=== PATIENT | male | born 1960 | race Caucasian/White ===

== ENCOUNTER → 2016-05-23 | Outpatient (CLI) | payer OTHER | LOC: BHFA 13:45 | PROVIDERS: ATTEND Internal Medicine Cardiovascular Disease | DX: I25.10 Atherosclerotic heart disease of native coronary artery without angina pectoris (principal); I73.9 Peripheral vascular disease, unspecified; I10 Essential (primary) hypertension; E11.9 Type 2 diabetes mellitus without complications; E78.5 Hyperlipidemia, unspecified ==

== ENCOUNTER → 2016-06-06 | Outpatient (CLI) | payer OTHER | LOC: BHFA 14:00 | PROVIDERS: ATTEND Internal Medicine Cardiovascular Disease | DX: R94.31 Abnormal electrocardiogram [ECG] [EKG] (principal); I73.9 Peripheral vascular disease, unspecified | CPT/HCPCS: 78452; 93017; A9500 ==

== ENCOUNTER 2016-10-21 01:37 | Emergency (ER) | payer OTHER ==
[2016-10-21 01:47] VITALS: BP 165/101; PULSE 86; RESP 16; TEMP 97.9; O2SAT 91
--- NOTE | 2016-10-21 01:48 | EDPHY ---
H & P Stated Complaint: R leg poss infection HPI/ROS: HPI CHIEF COMPLAINT: Possible right leg infection HISTORY OF PRESENT ILLNESS: This patient very pleasant 56-year-old male significant past medical history for diabetes, gangrene of the right leg requiring lkjhs-buk-rnmz amputation and now walks with a prostatic, hypertension , he presents emergency room as he thinks he may have an area of small amount of cellulitis to the right medial thigh/knee region. States this is where his prostatic goes on his leg. He noticed some irritation yesterday and redness. Today got slightly worse and he had some mild pain there. No fever. He now presents to the emergency room at 2 o'clock in the morning for a small circumferential area of redness and warmth with a central head 5 cm x 5 cm. Denies any other areas of inflammation. He does tell me he is diabetic. Has had infection cellulitis and abscess before. He is not allergic to any medications. Past Medical History: Diabetes, gangrene of the right leg requiring amputation , hypertension Past Surgical History: Right llprn-uqt-wumi amputation. Social History: Daily tobacco use, denies drugs or alcohol Family History: Noncontributory ROS REVIEW OF SYSTEMS: A comprehensive 10 point review of systems is otherwise negative aside from elements mentioned in the history of present illness. Exam Constitutional triage nursing summary reviewed, vital signs reviewed, awake/ alert. Eyes normal conjunctivae and sclera, EOMI, PERRLA. HENT normal inspection, atraumatic, moist mucus membranes, no epistaxis, neck supple/ no meningismus, no raccoon eyes. Respiratory clear to auscultation bilaterally, normal breath sounds, no respiratory distress, no wheezing. Cardiovascular rate normal, regular rhythm, no murmur, no edema, distal pulses normal. Gastrointestinal soft, non-tender, no rebound, no guarding, normal bowel sounds, no distension, no pulsatile mass. Genitourinary no CVA tenderness. Musculoskeletal no midline vertebral tenderness, full range of motion, no calf swelling, no tenderness of extremities, no meningismus, good pulses, neurovascularly intact. Skin RIGHT THIGH, MEDIAL ASPECT/PROXIMAL KNEE: There is an area of 5 cm x 5 cm circumferentially with a central head very minimal fluctuance, no significant induration, not exquisitely tender, no crepitus, no streaking, no palpable lymphadenopathy, however this area appears to be cellulitic . Neurologic awake, alert and oriented x 3, AAOx3, moves all 4 extremities equally, motor intact, sensory intact, CN II-XII intact, normal cerebellar, normal vision, normal speech. Psychiatric normal mood/affect. Heme/Lymph/Immune no lymphadenopathy. Differential Diagnosis: Cellulitis of the right thigh, MRSA infection, strep infection, abscess or early Medical Decision Making: Here in the emergency room he appears well nontoxic. Will do a bedside I and D as there is a little bit of fluctuance at the central head region. Will outline this. Need to be placed on warm compresses. It is minimal area at this time does not require hospitalization. He understands given that he is diabetic and has had gangrene in the past he needs to watch his wound very closely. Needs return to the emergency room immediately if he has any worsening symptoms this includes spreading of the redness, swelling, pain, drainage, fever. He understands this. We started on Keflex and Bactrim. 1st dose given here in the emergency room. Re-eval: 0205AM: I did perform a bedside I and D. 1% lidocaine with epinephrine was used for local anesthesia 5 cc were used. An 11 blade scalpel was used for a very small incision. A very small incision was made and only 1-2 cc of pus was removed. There was no tracking. No packing placed. Minimal fluctuance no significant induration. The wound is been outline. Dressing in place. Again patient warned about strict return precautions come back if this is getting worse including fever, swelling, worsening redness, streaking or pain. Or if he has any questions or concerns. Take Keflex and Bactrim. 1st dose given in the emergency room. He understands. 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 - Social History Smoking Status: Light smoker Constitutional: Initial Vital Signs Temperature (C) 36.6 C 10/21/16 01:44 Heart Rate 86 10/21/16 01:44 Respiratory Rate 16 10/21/16 01:44 Blood Pressure 165/101 H 10/21/16 01:44 O2 Sat (%) 91 L 10/21/16 01:44 O2 Delivery Mode Room Air Allergies/Adverse Reactions: No Known Allergies Allergy (Verified 07/26/15 15:34) Home Medications: Medication Instructions Recorded Aspirin [Aspirin 325 mg (OTC)] 325 mg PO DAILY 11/24/11 Citalopram [celeXA 20 MG (RX)] 20 mg PO DAILY 11/24/11 Clopidogrel Bisulfate [Plavix (RX)] 75 mg PO DAILY 11/24/11 Simvastatin [Zocor 40 mg (RX)] 40 mg PO DAILY18 11/24/11 metFORMIN HCL [Glucophage 500 mg 500 mg PO TID 11/24/11 (RX)] Cephalexin [Keflex] 500 mg PO Q6H #28 cap 10/21/16 Diovan 10/21/16 Glipizide 10/21/16 Sulfamethox/Tmp 800/160 mg 1 tab PO BID@1000,2200 #14 tab 10/21/16 [Bactrim Ds] Departure - Departure Disposition: Home, Routine, Self-Care Clinical Impression: Cellulitis Qualifiers: Site of cellulitis: extremity Site of cellulitis of extremity: lower extremity Laterality: right Qualified Code(s): L03.115 - Cellulitis of right lower limb Condition: Good Instructions: Cellulitis (ED), Abscess (ED) Additional Instructions: 1. Please take antibiotics as prescribed. 2. Return emergency room immediately if you have worsening symptoms includes worsening redness, streaking, fever, pain, drainage or any questions or concerns about your infection. If you think it is getting worse return immediately. 3. Use warm compresses 3 to 4 times a day for 20 minutes. Referrals: Leonarda Darby PA [Primary Care Provider] - As per Instructions Prescriptions: Cephalexin [Keflex] 500 mg PO Q6H #28 cap Sulfamethox/Tmp 800/160 mg [Bactrim Ds] 1 tab PO BID@1000,2200 #14 tab
[2016-10-21] MEDS ORDERED: SULFAMETHOX/TMP 800/160 MG 1 TAB PO ONE (01:59)
[2016-10-21] MEDS ORDERED: CEPHALEXIN 500 MG CAP PO ONE (01:59)
[2016-10-21] MEDS ORDERED: CEPHALEXIN 500MG PREPACK#4 BTL TAKEHOME ONE (01:59)
== END 2016-10-21 02:24 | disposition home or self-care (01) ==
DX: L03.115 Cellulitis of right lower limb (principal); E11.9 Type 2 diabetes mellitus without complications; I10 Essential (primary) hypertension; F17.200 Nicotine dependence, unspecified, uncomplicated; Z79.82 Long term (current) use of aspirin; Z79.84 Long term (current) use of oral hypoglycemic drugs

== ENCOUNTER 2016-11-09 16:44 | Emergency (ER) | payer OTHER ==
[2016-11-09 16:51] VITALS: BP 164/99; PULSE 78; RESP 16; TEMP 97.7; O2SAT 98
--- NOTE | 2016-11-09 17:16 | EDPHY ---
H & P Stated Complaint: R knee amputee 2003, pt concerned stump infected HPI/ROS: Chief complaint: Right leg infection History of present illness: This is a 56-year-old male who presents to the Emergency department for a right leg infection. Patient has a hhsmj-wjq-qtbl amputation with a prosthetic leg in place. He has noticed the development of the redness, pain and swelling to the inner aspect of the distal right leg over the last day. He is concerned this is a developing infection. He was seen in this emergency department at the end of September and diagnosed with an infection in the same place. He was treated with Keflex and Bactrim which he took as directed and symptoms resolved. However they are again returning. He denies other signs or symptoms including no red streaking, no fevers, no other signs or symptoms. 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 - Social History Smoking Status: Light smoker - Physical Exam Exam: General: Alert, nontoxic Skin: There is not a small area of erythema to the medial aspect of the right lower leg. No induration or fluctuance on palpation. No red streaking. Musculoskeletal: There is a cqzom-woo-bcit amputation. He is moving the knee well. Vascular: Good blood flow to the right lower extremity with capillary refill Neurologic: Sensation appears intact throughout the right lower extremity Constitutional: Initial Vital Signs Temperature (C) 36.5 C 11/09/16 16:49 Heart Rate 78 11/09/16 16:49 Respiratory Rate 16 11/09/16 16:49 Blood Pressure 164/99 H 11/09/16 16:49 O2 Sat (%) 98 11/09/16 16:49 O2 Delivery Mode Room Air Allergies/Adverse Reactions: No Known Allergies Allergy (Verified 07/26/15 15:34) Home Medications: Medication Instructions Recorded Aspirin [Aspirin 325 mg (OTC)] 325 mg PO DAILY 11/24/11 Citalopram [celeXA 20 MG (RX)] 20 mg PO DAILY 11/24/11 Clopidogrel Bisulfate [Plavix (RX)] 75 mg PO DAILY 11/24/11 Simvastatin [Zocor 40 mg (RX)] 40 mg PO DAILY18 11/24/11 metFORMIN HCL [Glucophage 500 mg 500 mg PO TID 11/24/11 (RX)] Diovan 10/21/16 Glipizide 10/21/16 Cephalexin [Keflex] 500 mg PO QID 7 Days 11/09/16 Sulfamethox/Tmp 800/160 mg 1 tab PO BID 7 Days 11/09/16 [Bactrim Ds] Medical Decision Making ED Course/Re-evaluation: Patient is seen under the supervision of my secondary supervising physician Dr. Isaiah Beth. Patient presents to the emergency department concerned he is developing a skin infection. History and physical exam is consistent with mild cellulitis. No evidence of complications such as abscess, lymphangitis etc. I will restart him on Keflex and Bactrim which he took previously. I believe he is appropriate for inpatient management. He is referred to Infectious Disease given recurrent infection. Return precautions are given. Patient voiced understanding and agreement plan. Differential Diagnosis: Include but not limited to cellulitis, abscess, lymphangitis, unlikely necrotizing fasciitis Departure - Departure Disposition: Home, Routine, Self-Care Clinical Impression: Cellulitis Qualifiers: Site of cellulitis: extremity Site of cellulitis of extremity: lower extremity Laterality: right Qualified Code(s): L03.115 - Cellulitis of right lower limb Condition: Good Instructions: Cellulitis (ED) Additional Instructions: Up with infectious disease this week for continued evaluation and care Take all antibiotics as prescribed until finished even feeling better If symptoms worsen or new symptoms develop return to the emergency room for recheck Referrals: Leonarda Fuller DO [Primary Care Provider] - As per Instructions Patricia Vargas MD [Medical Doctor] - As per Instructions Prescriptions: Cephalexin [Keflex] 500 mg PO QID 7 Days Sulfamethox/Tmp 800/160 mg [Bactrim Ds] 1 tab PO BID 7 Days
== END 2016-11-09 17:31 | disposition home or self-care (01) ==
DX: L03.115 Cellulitis of right lower limb (principal); E11.9 Type 2 diabetes mellitus without complications; F17.200 Nicotine dependence, unspecified, uncomplicated; Z79.82 Long term (current) use of aspirin; Z79.84 Long term (current) use of oral hypoglycemic drugs; Y82.8 Other medical devices associated with adverse incidents

== ENCOUNTER 2018-03-26 14:20 | Emergency (ER) | payer OTHER ==
--- NOTE | 2018-03-26 14:44 | EDPHY ---
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 About 4-5 days ago his prosthesis at rubbed some red area on the distal stump but now he has 2 open wounds, 1 a single cm and 10.5 cm on the distal stump. No lymphangitis and no pus or drainage. It is not painful, the patient does have a little bit of discomfort and is concerned that it will become infected if not treated. He says it was more swollen and red yesterday and today looks a little bit better. REVIEW OF SYSTEMS: No fever or chills, no direct trauma except for rubbing from the prosthesis PAST MEDICAL HISTORY: Includes right BKA, diabetes, hypercholesterolemia, hypertension Social history: [facility] General Appearance: Alert and conversant, cooperative. Distal stump has a 5 cm area of slight erythema but it is not warm to the touch or painful to palpation. This is anterior to the stump distally. On the inferior portion of the stump there are 2 open wounds, 1 is 1 cm and 1 is 0.5 cm. There partial-thickness and do not have discharge or drainage. No visible tissue underneath, partial thickness to the skin. Normal range of motion of the knee. Emergency Department course/MDM: Patient presents with open wound and is high risk for infection given previous gangrene and history of diabetes. He has some surrounding redness but do not think he is septic or have abscess or fasciitis or require IV antibiotics. Local wound care, Augmentin, will use crutches no prosthesis until healed, primary care follow-up. This is what the patient is requesting which I think is reasonable. Smoking Status: Light smoker Constitutional: Initial Vital Signs Temperature (C) 36.3 C 03/26/18 14:24 Heart Rate 82 03/26/18 14:24 Respiratory Rate 18 03/26/18 14:24 Blood Pressure 189/105 H 03/26/18 14:24 O2 Sat (%) 95 03/26/18 14:24 O2 Delivery Mode Room Air Allergies/Adverse Reactions: No Known Allergies Allergy (Verified 03/26/18 14:28) Home Medications: Medication Instructions Recorded Aspirin [Aspirin 325 mg (OTC)] 325 mg PO DAILY 11/24/11 Citalopram [celeXA 20 MG (RX)] 20 mg PO DAILY 11/24/11 Clopidogrel Bisulfate [Plavix (RX)] 75 mg PO DAILY 11/24/11 Simvastatin [Zocor 40 mg (RX)] 40 mg PO DAILY18 11/24/11 metFORMIN HCL [Glucophage 500 mg 500 mg PO TID 11/24/11 (RX)] Diovan 10/21/16 Glipizide 10/21/16 Amoxicillin/Clavulanate Pot 875 mg PO BID #20 tab 03/26/18 [Augmentin 875 mg tab] Metoprolol Tartrate 03/26/18 MDM/Departure - Depart Disposition: Home, Routine, Self-Care Clinical Impression: Wound of right lower extremity Qualifiers: Encounter type: initial encounter Qualified Code(s): S81.801A - Unspecified open wound, right lower leg, initial encounter Condition: Good Instructions: Acute Wounds (ED) Additional Instructions: Do not wear your prosthesis, and use crutches until the wound is fully healed. Please follow-up with your doctor or return here if you get worsening redness pain or swelling or fever. Prescriptions: Amoxicillin/Clavulanate Pot [Augmentin 875 mg tab] 875 mg PO BID #20 tab Referrals: [facility],. [Clinic] - As per Instructions
[2018-03-26 15:10] VITALS: BP 162/89
== END 2018-03-26 15:08 | disposition home or self-care (01) ==
DX: S81.801A Unspecified open wound, right lower leg, initial encounter (principal); E11.9 Type 2 diabetes mellitus without complications; I10 Essential (primary) hypertension; E78.00 Pure hypercholesterolemia, unspecified; X58.XXXA Exposure to other specified factors, initial encounter; Y92.9 Unspecified place or not applicable; Y93.9 Activity, unspecified; Y99.9 Unspecified external cause status; Z96.651 Presence of right artificial knee joint

== ENCOUNTER 2018-07-02 17:33 | Emergency (ER) | payer OTHER ==
--- NOTE | 2018-07-02 18:11 | EDPHY ---
H & P Time Seen by Provider: 07/02/18 17:58 HPI/ROS: CHIEF COMPLAINT: Fatigue, weakness, headache HISTORY OF PRESENT ILLNESS: Patient is an 80-year-old male who presents emergency department with multiple complaints. Primary complaint is that he has had increasing fatigue over the past month. He feels as though he has no energy. He wakes up in the morning and feels like he needs further sleep. He has also developed a headache over the past 7 days. He is concerned this could be related to his blood pressure. He has had nausea with no vomiting. He denies any chest pain. No cough. No abdominal pain. No nausea vomiting. No dysuria frequency. REVIEW OF SYSTEMS: 10 systems were reveiwed and are negative with the exception of the elements mentioned in the history of present illness. Past Medical/Surgical History: Includes diabetes, cholesterol, depression, hypertension Past surgical history: Below the knee amputation Social history: Patient does not smoke Smoking Status: Light smoker Physical Exam: Vitals noted GENERAL: Well-appearing, in no acute distress, alert. HEENT: Eyes normal to inspection, normal pharynx, no signs of dehydration. NECK: Normal, supple. RESPIRATORY: Clear to auscultation bilaterally, no rales, rhonchi or wheezing. CVS: Regular rate and rhythm, no rubs, murmurs, or gallops. ABDOMEN: Soft, nontender, nondistended, no organomegaly. BACK: Normal to inspection, no CVA tenderness. SKIN: Normal color, no rash, warm, dry. No pallor. EXTREMITIES: Right BKA, No pedal edema, no calf tenderness, no Homans sign or cords, no joint swelling. NEURO/PSYCH: Higher functions: Alert and Oriented x3. Normal speech and cognition. Normal mood and affect. Cranial nerves: Normal as tested. Cerebellar: Normal as tested. Good finger to nose, good [id number], normal gait. Peripheral exam: Normal motor exam. Normal sensation. Normal reflexes. Constitutional: Initial Vital Signs Temperature (C) 36.6 C 07/02/18 17:45 Heart Rate 65 07/02/18 17:45 Respiratory Rate 16 07/02/18 17:45 Blood Pressure 182/101 H 07/02/18 17:45 O2 Sat (%) 95 07/02/18 17:45 O2 Delivery Mode Room Air Allergies/Adverse Reactions: No Known Allergies Allergy (Verified 07/02/18 17:45) Home Medications: Medication Instructions Recorded Aspirin [Aspirin 325 mg (OTC)] 325 mg PO DAILY 11/24/11 Citalopram [celeXA 20 MG (RX)] 20 mg PO DAILY 11/24/11 Clopidogrel Bisulfate [Plavix (RX)] 75 mg PO DAILY 11/24/11 Simvastatin [Zocor 40 mg (RX)] 40 mg PO DAILY18 11/24/11 metFORMIN HCL [Glucophage 500 mg 500 mg PO TID 11/24/11 (RX)] Diovan 10/21/16 Glipizide 10/21/16 Amoxicillin/Clavulanate Pot 875 mg PO BID #20 tab 03/26/18 [Augmentin 875 mg tab] Metoprolol Tartrate 03/26/18 Medical Decision Making - Diagnostics Imaging Results: Imaging Impressions Chest X-Ray 07/02/18 18:07 Impression: Question mild bronchitis. No other findings for acute cardiopulmonary abnormality. Chronic findings, as above. Head CT 07/02/18 18:07 Impression: Normal. Results called and discussed with DANIELA OSULLIVAN at 07/02/2018 19:03. ED Course/Re-evaluation: In the emergency department I discussed possible etiologies with the patient. I answered all his questions. An IV was placed. Laboratory studies, EKG, chest x-ray and head CT were ordered. EKG shows normal sinus rhythm, normal rate, normal axis, normal intervals. There are no ST or T-wave abnormalities. EKG is normal as interpreted by me. White count is elevated at 11. Chemistry panel is unremarkable. LFTs are normal. Troponin is negative. Head CT: Please refer the dictated report by Dr. Andres. No acute disease noted I rechecked the patient and he was stable. No new complaints. The patient will follow up with Dr. Lopez and the [facility]. He was given warnings prior to leaving. He will take his medications as prescribed. Differential Diagnosis: My differential includes but is not limited to ACS, acute PA, dysrhythmia, electrolyte abnormality, sugar abnormality, ischemic CVA, hemorrhagic CVA, dissection, aneurysm, Meniere's disease, labyrinthitis - Data Points Laboratory Results: Laboratory Results 07/02/18 18:05 07/02/18 18:05 07/02/18 07/02/18 07/02/18 18:15 18:05 18:05 WBC 11.13 10^3/uL H 10^3/uL (3.80-9.50) RBC 4.98 10^6/uL 10^6/uL (4.40-6.38) Hgb 15.1 g/dL g/dL (13.7-17.5) Hct 44.4 % % (40.0-51.0) MCV 89.2 fL fL (81.5-99.8) MCH 30.3 pg pg (27.9-34.1) MCHC 34.0 g/dL g/dL (32.4-36.7) RDW 13.6 % % (11.5-15.2) Plt Count 243 10^3/uL 10^3/uL (150-400) MPV 9.9 fL fL (8.7-11.7) Neut % (Auto) 64.8 % % (39.3-74.2) Lymph % (Auto) 28.1 % % (15.0-45.0) [place] % (Auto) 5.0 % % (4.5-13.0) Eos % (Auto) 1.3 % % (0.6-7.6) Baso % (Auto) 0.4 % % (0.3-1.7) Nucleat RBC Rel Count 0.0 % % (0.0-0.2) Absolute Neuts (auto) 7.21 10^3/uL H 10^3/uL (1.70-6.50) Absolute Lymphs (auto) 3.13 10^3/uL H 10^3/uL (1.00-3.00) Absolute Monos (auto) 0.56 10^3/uL 10^3/uL (0.30-0.80) Absolute Eos (auto) 0.15 10^3/uL 10^3/uL (0.03-0.40) Absolute Basos (auto) 0.04 10^3/uL 10^3/uL (0.02-0.10) Absolute Nucleated RBC 0.00 10^3/uL 10^3/uL (0-0.01) Immature Gran % 0.4 % % (0.0-1.1) Immature Gran # 0.04 10^3/uL 10^3/uL (0.00-0.10) Sodium 137 mEq/L mEq/L (135-145) Potassium 3.6 mEq/L mEq/L (3.5-5.2) Chloride 102 mEq/L mEq/L (97-110) Carbon Dioxide 24 mEq/l mEq/l (22-31) Anion Gap 11 mEq/L mEq/L (6-14) BUN 15 mg/dL mg/dL (7-23) Creatinine 1.0 mg/dL mg/dL (0.7-1.3) Estimated GFR > 60 Glucose 135 mg/dL H mg/dL (70-100) Calcium 9.3 mg/dL mg/dL (8.5-10.4) Total Bilirubin 0.7 mg/dL mg/dL (0.1-1.4) Conjugated Bilirubin 0.3 mg/dL mg/dL (0.0-0.5) Unconjugated Bilirubin 0.4 mg/dL mg/dL (0.0-1.1) AST 26 IU/L IU/L (17-59) ALT 44 IU/L IU/L (21-72) Alkaline Phosphatase 55 IU/L IU/L (38-126) POC Troponin I 0.02 ng/mL ng/mL (0.00-0.08) NT-Pro-B Natriuret Pep 112 pg/mL pg/mL (0-125) Total Protein 6.5 g/dL g/dL (6.3-8.2) Albumin 4.2 g/dL g/dL (3.5-5.0) Lipase 156 IU/L IU/L (23-300) Point of Care Test Results: Chemistry 07/02/18 18:15 POC Troponin I 0.02 ng/mL ng/mL (0.00-0.08) Departure - Departure Disposition: Home, Routine, Self-Care Clinical Impression: Dizzy Fatigue Qualifiers: Fatigue type: unspecified Qualified Code(s): R53.83 - Other fatigue Headache Qualifiers: Headache type: unspecified Headache chronicity pattern: acute headache Intractability: not intractable Qualified Code(s): R51 - Headache Hypertension Qualifiers: Hypertension type: unspecified Qualified Code(s): I10 - Essential (primary) hypertension Condition: Fair Instructions: Hypertension (ED), Dizziness (ED) Additional Instructions: Return with increasing headache, dizziness, chest pain, shortness of breath or any other concerns Referrals: Dannie Lopez MD [Medical Doctor] - 5-7 days, call for appt. [facility],. [Primary Care Provider] - 5-7 days, call for appt.
[2018-07-02 18:15] LABS: PLATELET COUNT 243 10^3/uL (150-400)
[2018-07-02 20:00] VITALS: BP 179/105
--- NOTE | 2018-07-02 20:25 | CPEKG ---
Test Reason : OPEN Blood Pressure : / mmHG Vent. Rate : 063 BPM Atrial Rate : 064 BPM P-R Int : 166 ms QRS Dur : 090 ms QT Int : 450 ms P-R-T Axes : 043 045 000 degrees QTc Int : 461 ms Sinus rhythm Probable left atrial enlargement Nonspecific T abnormalities, lateral leads Confirmed by Daniela Ballard ([id number]) on 07/02/2018 8:25:06 PM Referred By: DANIELA BALLARD Confirmed By:Daniela Ballard
== END 2018-07-02 20:02 | disposition home or self-care (01) ==
DX: R42 Dizziness and giddiness (principal); R51 Headache; R53.83 Other fatigue; I10 Essential (primary) hypertension; E11.9 Type 2 diabetes mellitus without complications; F32.9 Major depressive disorder, single episode, unspecified
CPT/HCPCS: 84484-ER